=== PATIENT | female | born 2000 | race Caucasian/White ===

== ENCOUNTER 2021-07-27 19:14 | Inpatient (IN) ==
[2021-07-27 19:12] LABS: Bacteria,Urine Few per hpf (None-Few); Bilirubin,Urine Negative (Negative); Blood,Urine Negative (Negative); Clarity,Urine Turbid (Clear); Color,Urine Light-Yellow (Yellow); Glucose,Urine (UA) Normal (Normal); Ketones,Urine 10 mg/dL (Negative); Leukocyte Esterase,Urine Negative (Negative); Mucus,Urine Few per lpf (None-Few); Nitrite,Urine Negative (Negative); Protein,Urine Negative (Neg-Trace); RBC,Urine 0-3 per hpf (0-3); Specific Gravity,Urine 1.007 (1.010-1.025); Squamous Epithelial Cell,Urine Few per hpf (None-Few); Urobilinogen,Urine Normal (Normal); WBC,Urine 0-3 per hpf (0-3)
[~2021-07-27 19:14] MED LIST: EPHEDrine 50 MG/ML VIAL IVP PRN
[2021-07-27] MEDS ORDERED: Penicillin G Potassium 5,000,000 UNIT in 0.9 % Sodium Chloride Mini Bag 100 ML IVPB ONE (19:23)
[2021-07-27] MEDS ORDERED: Famotidine 20 MG/2 ML VIAL IVP PRN (19:23)
[2021-07-27] MEDS ORDERED: Metoclopramide 10 MG/2 ML VIAL IVP PRN (19:23)
[2021-07-27] MEDS ORDERED: Naloxone 0.4 MG/ML INJ IVP PRN (19:23)
[2021-07-27] MEDS ORDERED: Ondansetron 4 MG/2 ML VIAL IVP ONE (19:49)
[2021-07-27] MEDS: Ringers Solution, Lactated 1,000 ML IVC SCH (20:08)
[2021-07-27 20:22] LABS: Basophils % 0.1 %; Hematocrit 34.2 % (35.3-44.9); Hemoglobin 11.6 g/dL (11.5-15.4); Immature Granulocytes % 0.4 % (0-4); Lymphocytes # 0.6 K/mcL (0.6-4.6); Lymphocytes % 3.8 %; Mean Corpuscular HGB Conc 33.9 g/dL (31.6-35.5); Mean Corpuscular Hemoglobin 30.6 pg (28.0-33.3); Mean Corpuscular Volume 90.2 fL (83.0-100.0); Mean Platelet Volume 10.4 fL (9.4-12.4); Monocytes # 0.9 K/mcL (0.0-1.3); Monocytes % 5.4 %; Neutrophils # 14.4 K/mcL (1.6-8.9); Platelet Count 241 K/mcL (140-400); Red Blood Count 3.79 M/mcL (3.82-4.97); Red Cell Distribution Width 12.8 % (11.5-14.5); Segmented Neutrophils % 90.3 %
[2021-07-27 20:31] LABS: Amphetamine Screen,Urine Negative ng/mL (Cutoff=1000); Barbiturate Screen,Urine Negative ng/mL (Cutoff=200); Benzodiazepines Screen,Urine Negative ng/mL (Cutoff=200); Cannabinoid Screen,Urine Negative ng/mL (Cutoff = 50); Cocaine Screen,Urine Negative ng/mL (Cutoff= 300); Opiate Screen,Urine Negative ng/mL (Cutoff=300); Phencyclidine Screen,Urine Negative ng/mL (Cutoff=25)
[2021-07-27 21:12] LABS: Influenza A PCR Negative (Negative); Influenza B PCR Negative (Negative); Resp. Syncytial Virus PCR Negative (Negative)
[2021-07-27 21:14] LABS: SARS-CoV-2 by PCR (In House) Negative (Negative)
[2021-07-27] MEDS ORDERED: Oxytocin 20 units/ LR 1000 mL 20 UNIT/1,000 ML BAG IVC SCH (22:15)
[2021-07-28] MEDS: Penicillin G Potassium 2,500,000 UNIT/105 ML MLS IVPB SCH ×4 (00:16→13:30)
[2021-07-28] MEDS: Epidural Premix (fent/bupiv) 110 ML EP SCH ×2 (03:03→10:47)
[2021-07-28] MEDS: Ringers Solution, Lactated 1,000 ML IVC SCH (09:14)
[2021-07-28] MEDS ORDERED: Azithromycin 500 MG in 0.9 % Sodium Chloride 250 ML IVPB PRN (15:36)
[2021-07-28] MEDS ORDERED: Lidocaine/EPI 1:200k 2% PF 20 ML VIAL ONE (15:37)
[2021-07-28] MEDS ORDERED: *HR* FentaNYL (PF) 100 MCG/2 ML VIAL ONE (15:37)
[2021-07-28] MEDS ORDERED: Ondansetron 4 MG/2 ML VIAL ONE (16:00)
[2021-07-28] MEDS ORDERED: CeFAZolin 2,000 MG/120 ML BAG IVPB ONE (16:00)
[2021-07-28] MEDS ORDERED: *HR* Oxytocin 10 UNIT/ML VIAL ONE (16:03)
[2021-07-28] MEDS ORDERED: *HR* Morphine Sulfate/PF 10 MG/10 ML AMPUL ONE (16:13)
[2021-07-28] MEDS ORDERED: Ketorolac 30 MG/ML VIAL ONE (16:15)
[2021-07-28] MEDS ORDERED: Acetaminophen IV 1,000 MG/100 ML BAG IVPB ONE (16:15)
[2021-07-28] MEDS ORDERED: *HR* OxyCODONE Immed Rel 5 MG TABLET PO PRN ×2 (17:06→19:33)
[2021-07-28] MEDS ORDERED: Promethazine 6.25 MG in Water for inj. (sterile) 20 ML IVPB PRN (17:06)
[2021-07-28] MEDS ORDERED: *HR* FentaNYL (PF) 100 MCG/2 ML VIAL IVP PRN (17:06)
[2021-07-28] MEDS ORDERED: Naloxone 0.4 MG/ML INJ IVP PRN ×2 (17:06→19:33)
[2021-07-28] MEDS ORDERED: Simethicone 80 MG TAB.CHEW PO PRN (19:33)
[2021-07-28] MEDS ORDERED: Acetaminophen 325 MG TABLET PO SCH (19:33)
[2021-07-28] MEDS ORDERED: Ondansetron 4 MG/2 ML VIAL IVP PRN (19:33)
[2021-07-28] MEDS ORDERED: 0.9 % Sodium Chloride 1,000 ML IVC SCH (19:33)
[2021-07-28] MEDS ORDERED: Oxytocin 20 units/ LR 1000 mL 20 UNIT/1,000 ML BAG IVC SCH (19:33)
[2021-07-28] MEDS ORDERED: Metoclopramide 10 MG/2 ML VIAL IVP PRN (19:33)
[2021-07-28] MEDS: Ibuprofen 600 MG TABLET PO SCH (22:15)
[2021-07-29] MEDS: Acetaminophen 325 MG TABLET PO SCH ×3 (02:04→20:24)
[2021-07-29] MEDS: Ibuprofen 600 MG TABLET PO SCH ×3 (04:07→22:02)
[2021-07-29 05:43] LABS: Band Neutrophils % 11.3 % (0-4); Hematocrit 31.6 % (35.3-44.9); Hemoglobin 10.9 g/dL (11.5-15.4); Mean Corpuscular HGB Conc 34.5 g/dL (31.6-35.5); Mean Corpuscular Hemoglobin 31.1 pg (28.0-33.3); Mean Corpuscular Volume 90.3 fL (83.0-100.0); Mean Platelet Volume 10.4 fL (9.4-12.4); Monocytes # 1.1 K/mcL (0.0-1.3); Monocytes % 8.1 %; Neutrophils # 12.3 K/mcL (1.6-8.9); Platelet Count 192 K/mcL (140-400); Segmented Neutrophils % 79.2 %; White Blood Count 13.6 K/mcL (4.3-11.1)
[2021-07-29 05:44] LABS: Basophils % 0.3 %; Eosinophils # 0.1 K/mcL (0.0-0.6); Eosinophils % 0.4 %; Immature Granulocytes % 0.7 % (0-4); Lymphocytes # 1.5 K/mcL (0.6-4.6); Lymphocytes % 11.3 %
[2021-07-29 06:50] VITALS: O2SAT 99
[2021-07-29] MEDS: Prenatal Vit/FA 1 EACH TABLET PO SCH (07:48)
[2021-07-29] MEDS ORDERED: Acetaminophen 325 MG TABLET PO SCH (20:00)
[2021-07-30] MEDS: Acetaminophen 325 MG TABLET PO SCH ×2 (03:17→08:45)
[2021-07-30] MEDS: Ibuprofen 600 MG TABLET PO SCH (05:50)
[2021-07-30 07:23] VITALS: BP 116/75; PULSE 81; TEMP 97.9
[2021-07-30] MEDS: Prenatal Vit/FA 1 EACH TABLET PO SCH (08:45)
== END 2021-07-30 16:06 | disposition home or self-care (01) | DRG 788 ==
LOC: 1NENULAB → 1NENUOBS 07-28 18:45
PROVIDERS: ADMIT Advanced Practice Midwife; ATTEND Advanced Practice Midwife